=== PATIENT | male | born 1990 | race Two or more races ===

== ENCOUNTER 2025-01-02 01:43 | Inpatient (IN) | payer OTHER ==
[~2025-01-02] VITALS: Ht 182.9 cm; Wt 214.5 kg
--- NOTE | 2025-01-02 02:04 | NUR ---
SE RECIBE PTE MASCULINO ALERTA Y ORIENTADO X3 EN AMBULANCIA. PTE REFIERE DOLOR VESICULAR. SE MICAH S/V Y SE UBICA EN WENDIE.
[2025-01-02] MEDS ORDERED: KETOROLAC TROMETHAMINE 30 MG VIAL IV STA (02:09)
[2025-01-02] MEDS ORDERED: MORPHINE SULFATE 4 MG/ML VIAL IV STA (02:09)
[2025-01-02] MEDS ORDERED: 0.9 % SODIUM CHLORIDE 1,000 ML IV STA (02:09)
--- NOTE | 2025-01-02 03:00 | NUR ---
SE ORIENTA A PTE SOBRE TX MEDICO, EL MISMO REFIERE ENTENDER Y ACEPTAR GEOFFREY. SE COLECTAN MUESTRAS DE LABORATORIO BAJO MEDIDAS ASEPTICAS. SE ADMINISTRAN MEDICAMENTOS LORENE ORDEN MEDICA.
[2025-01-02 03:32] LABS: BASO % 0.5 % (0.1-1.2); EOS # 0.08 (0.04-0.54); EOS % 0.7 % (0.7-7.0); LYMPH # 1.93 (1.18-3.74); LYMPH % 15.9 % (19.3-53.1); MEAN PLATELET VOLUME 11.60 fl (9.4-12.4); MONO # 0.52 (0.24-0.82); MONO % 4.3 % (4.7-12.5); NEUT # 9.53 (1.56-6.13); NEUT % 78.3 % (34.0-71.1); RED CELL DISTRIBUTION WIDTH 11.9 % (11.6-14.4)
[2025-01-02 03:40] LABS: INR 1.18
[2025-01-02 04:23] LABS: ALT/SGPT 58.0 U/L (12-78); AST/SGOT 29.0 U/L (15-37); BILIRUBIN TOTAL 0.85 mg/dL (0.3-1.2); BILIRUBIN,CONJUGATED 0.23 mg/dL (0.0-0.2); BUN CREA RATIO 18.0 (7.0-25.0); CREATININE SERUM 0.91 mg/dL (0.70-1.30); GFR 94.27; GLOBULINA 3.3 G/DL (2.4-3.5); GLUCOSE FASTING 105.0 mg/dL (65-100); OSMOLALITY SERUM 285.0 MOSM/KG (275-295)
[2025-01-02] MEDS ORDERED: PIPERACILLIN/TAZOBACTAM SODIUM 3.375 GM VIAL IV STA (07:24)
[2025-01-02] MEDS ORDERED: ONDANSETRON HCL 2 MG/ML VIAL IV ONE (15:15)
--- NOTE | 2025-01-02 15:41 | NUR ---
SE REALIZA JUNIOR PTE ALERTA Y ORIENTADA X3. PTE EN WENDIE EN POSICION SEMI SENTADA CON BARANDAS ELEVADAS POR BRICENO SEGURIDAD. PTE REFIERE PRESENTAR NAUSEAS, SE ADMINISTRA TX LORENE ORDEN MEDICA BAJO MEDIDAS ASEPTICAS. SE ORIENTA PTE QUIEN REFIERE ENTENDER Y ACEPTAR. SE MANTIENE BAJO OBSERVACION POR CAMBIO.
[2025-01-02] MEDS ORDERED: CEFTRIAXONE SODIUM 1,000 MG VIAL IV SCH (17:05)
[2025-01-02] MEDS ORDERED: MORPHINE SULFATE 2 MG/ML CARTRIDGE IV PRN (17:15)
[2025-01-02] MEDS ORDERED: ONDANSETRON HCL 4 MG in 0.9 % SODIUM CHLORIDE 50 ML IV PRN (17:15)
[2025-01-02] MEDS ORDERED: 0.9 % SODIUM CHLORIDE 1,000 ML IV SCH (17:15)
[2025-01-02 22:24] VITALS: BP 130/71
[2025-01-02 22:28] VITALS: BP 130/71; O2SAT 95
[2025-01-03 00:30] VITALS: BP 118/77; O2SAT 100
[2025-01-03 08:40] VITALS: BP 104/63; O2SAT 98
== END 2025-01-03 15:30 | disposition home or self-care (01) | DRG 419 ==
LOC: ER 01:43 → SURH 16:35 → O/R 16:35 → SURH 19:54
PROVIDERS: ADMIT Specialist; ATTEND Specialist
PROC: BW21ZZZ Computerized Tomography (CT Scan) of Abdomen and Pelvis (ICD-10-PCS; 2025-01-02)
PROC: BW40ZZZ Ultrasonography of Abdomen (ICD-10-PCS; 2025-01-02)
PROC: 0FT44ZZ Resection of Gallbladder, Percutaneous Endoscopic Approach (ICD-10-PCS; principal; 2025-01-02 16:15)
DX: K80.10 Calculus of gallbladder with chronic cholecystitis without obstruction (principal)